=== PATIENT | male | born 1965 | race Caucasian/White ===

== ENCOUNTER 2022-11-29 17:49 | Emergency (ER) | payer BC, SELFPAY ==
[2022-11-29 17:50] VITALS: BP 130/73; PULSE 62; RESP 18; TEMP 36.6; O2SAT 96; BMI 39.4
--- NOTE | 2022-11-29 19:24 | ED.VIS.GI ---
HPI HPI - GI History of Present Illness Chief Complaint: Abd Pain Informant: patient Narrative Narrative: Patient presents with abdominal pain. The triage note said 2 days. Patient states it started today. He has had constipation for about a week. He states he did move his bowels today but it was very large. It was not black or bloody.. He states today he started to have some cramping in the lower abdomen across both sides. This was going on for about an hour or 2. He states is really a lot better now and essentially gone. He never had nausea vomiting with this. He states he felt a little flushed when the pain was bad but he never got lightheaded or presyncopal. He has no back pain at any time. He has no peripheral numbness tingling or weakness. He has not been ill recently. He has had no fevers or chills. No trouble breathing. No chest pain. No history of any prior abdominal surgery. No new medications. No blood or black in the stool. I did review patient's past surgical medical history along with medications and allergies and family history with the patient and in the record. [facility] Medical History (Updated 11/29/22 @ 21:[address] Derrick Ayers MD) Anxiety Depression DM hyperosmolarity type II HTN (hypertension) Hypothyroid Home Medications hydrochlorothiazide 25 mg tablet 25 mg PO DAILY 01/06/15 [History Last Taken Unknown] multivitamin with folic acid 400 mcg tablet (Thera) 1 tab PO DAILY 01/06/15 [History Last Taken Unknown] tamsulosin 0.4 mg capsule 0.4 mg PO DAILY 01/06/15 [History Last Taken Unknown] fluoxetine 40 mg capsule 40 mg PO DAILY 11/08/16 [History Last Taken Unknown] pioglitazone 30 mg tablet 30 mg PO DAILY DIABETES 11/08/16 [History Last Taken Unknown] amlodipine 5 mg tablet 5 mg PO DAILY 11/29/22 [History Last Taken Unknown] bupropion HCl 300 mg 24 hr tablet, extended release 300 mg PO DAILY 11/29/22 [History Last Taken Unknown] dulaglutide 0.75 mg/0.5 mL subcutaneous pen injector (Trulicity) 0.75 mg subcut QWEEK 11/29/22 [History Last Taken Unknown] glipizide 5 mg tablet mg 11/29/22 [History Last Taken Unknown] levothyroxine 112 mcg tablet 112 mcg PO DAILY 11/29/22 [History Last Taken Unknown] losartan 100 mg tablet 100 mg PO DAILY 11/29/22 [History Last Taken Unknown] metoprolol succinate 50 mg tablet,extended release 24 hr 50 mg PO DAILY 11/29/22 [History Last Taken Unknown] potassium chloride 20 mEq tablet,extended release(part/cryst) 20 meq PO DAILY 11/29/22 [History Last Taken Unknown] Allergy/AdvReac Type Severity Reaction Status Date / Time No Known Allergies Allergy Verified 11/08/16 00:21 Social History Smoking Status: Never smoker EXAM Physical Exam Narrative Exam Narrative: Patient is awake alert. He looks very comfortable in the bed. He is nontoxic. He states he is really not hurting now. HEENT is normal. There is no pallor. Mucous membranes are moist. Lungs are clear. No pain with a deep breath. Heart is regular with a rate about 65. I hear no murmur gallop rub or muffled tones. Peripheral pulses x4 are normal. Abdomen is mildly obese but not distended. Bowel sounds are normal. The exam is very normal. There is no tenderness at this time. I feel no mass. There is no bruit. There is no CVA tenderness. Extremities show no swelling. There is no mottling. Sensation and pulses are normal. Patient is awake alert and appropriate. Const Vital Signs: 11/29/22 17:50 Temperature 97.9 F Temperature Source Temporal Pulse Rate 62 Respiratory Rate 18 Blood Pressure 130/73 H Blood Pressure Mean 92 Pulse Ox 96 Oxygen Delivery Method Room Air MDM MDM MDM Narrative Medical decision making narrative: 7 view x-ray abdominal series looked at by me and independently interpreted by me shows no sign of obstruction. No sign of ileus. I do not see any calcifications near the gallbladder or kidneys. There is some increased stool. Radiology reading also shows no acute process. Blood work was done include CBC that showed no elevation of white count abnormal hematocrit or platelets. Electrolytes showed mildly decreased potassium at 3.1 but this should self correct with diet. Glucose was only minimally elevated 124. He did have elevation of AST ALT and slight elevation of bilirubin. Alkaline phosphatase was normal. Lipase was normal. I have no prior labs to compare with and these were looked for on his medical record. I explained to the patient that these liver tests will need to be rechecked. He never had right upper quadrant tenderness. He does not drink regularly. He has no tenderness or pain in the area now. He actually has no complaints at all right now. He feels totally normal. On his urine showed some nitrites but only 0-5 white cells. A culture will be sent but he was not treated with antibiotics as again he has no symptoms of UTI. I long discussion with the patient. He thinks this is likely constipation. I think this certainly could cause his symptoms of transient cramping that resolved. He did move his bowels once at home. He has already gone to the store and bought Dulcolax but has not yet taken it. I discussed that diverticulitis is certainly possible but I do not think he needs a CAT scan at this time. His symptoms are resolved, he has no tenderness, no history of diverticulitis no fever no white count. I do not think this likely is kidney stone as he never had back or flank pain. Lab Data Attestation: I reviewed the patient's lab results. Labs: Laboratory Results - last 24 hr 11/29/22 11/29/22 11/29/22 19:40 19:45 19:45 WBC 8.0 RBC 5.00 Hgb 14.4 Hct 43.7 MCV 87.4 MCH 28.8 MCHC 33.0 RDW Std Deviation 42.5 RDW Coeff of Saurabh 13.4 Plt Count 164 MPV 11.1 Immature Gran % (Auto) 0.800 Neut % (Auto) 68.9 Lymph % (Auto) 19.5 Clinch % (Auto) 6.3 Eos % (Auto) 3.9 Baso % (Auto) 0.6 Absolute Neuts (auto) 5.5 Absolute Lymphs (auto) 1.56 Nucleated RBC % 0 Sodium 141 Potassium 3.1 L Chloride 105 Carbon Dioxide 31.0 Anion Gap 5 BUN 15 Creatinine 1.01 Estim Creat Clear Calc 83.87 Est GFR (MDRD) Af Amer 97 Est GFR (MDRD) Non-Af 80 BUN/Creatinine Ratio 14.9 Glucose 124 H Calcium 9.3 Total Bilirubin 2.00 H AST 278 H ALT 263 H Alkaline Phosphatase 115 Total Protein 7.3 Albumin 3.6 Globulin 3.7 Albumin/Globulin Ratio 1.0 Lipase 168 Urine Color Janet Urine Clarity Sl. Cloudy Urine pH 8.0 Ur Specific [place] 1.010 Urine Protein 15 H Urine Glucose (UA) 100 H Urine Ketones Negative Urine Occult Blood Negative Urine Nitrite Positive H Urine Bilirubin 1 H Urine Urobilinogen 8 H Ur Leukocyte Esterase 100 H Urine RBC 0 SEEN Urine WBC 0-5 SEEN Ur Squamous Epith Cells 0-5 SEEN Urine Bacteria 2+ Urine Mucus 0 SEEN Radiography Diagnostic Testing: Clinical Impression(s) from Imaging Studies Acute Abdomen Series 11/29/22 20:10 IMPRESSION: Negative chest and abdominal series. Electronically Signed: Oscar Durand MD at 20:30 EST , Discharge Plan Triage Chief Complaint: Abd Pain ED Provider: Derrick Ayers Dx/Rx/DC Orders Clinical Impression: Abdominal pain, Constipation Instructions: ED Constipation (Adult), ED Abdominal Pain Unkn Cause Male... Prescriptions: No Action tamsulosin 0.4 MG capsule 0.4 mg PO DAILY hydrochlorothiazide 25 MG tablet 25 mg PO DAILY multivitamin with folic acid [Thera] 1 TABLET tablet 1 tab PO DAILY fluoxetine 40 MG capsule 40 mg PO DAILY Label Comments: pioglitazone 30 MG tablet 30 mg PO DAILY Label Comments: metoprolol succinate 50 mg tablet extended release 24 hr 50 mg PO DAILY Label Comments: TAKE 1 TABLET BY MOUTH ONCE DAILY amlodipine 5 mg tablet 5 mg PO DAILY Label Comments: Take 1.5 tablets by mouth once daily. potassium chloride 20 mEq tablet,ER particles/crystals 20 meq PO DAILY Label Comments: Take 1 tablet by mouth twice daily. losartan 100 mg tablet 100 mg PO DAILY glipizide 5 mg tablet Label Comments: Take 1 tablet by mouth twice daily before meals. levothyroxine 112 mcg tablet 112 mcg PO DAILY Label Comments: Take 1 tablet by mouth once daily. bupropion HCl 300 mg tablet extended release 24 hr 300 mg PO DAILY Label Comments: TAKE 1 TABLET BY MOUTH ONCE DAILY Trulicity 0.75 mg/0.5 mL pen injector 0.75 mg SUBCUT QWEEK Label Comments: Inject 0.75 mg subcutaneously one time a week. Inject dose once per week. Discard Pen After Primary Care Provider: Marcel Costa Referrals: Marcel Costa MD [Primary Care Provider] - 1-2 Days if not improving Activity Restrictions/Additional Instructions: You may use the Dulcolax that she already bought. May also try a fleets enema. Disposition Disposition: Home, Self Care
[2022-11-29] MEDS: 0.9% Normal Saline 1,000 ML 1000 ML IV (19:55)
[2022-11-29 20:00] LABS: Absolute Lymphocyte Count 1.56 X10^3/uL (0.83-4.51); Absolute Neutrophil Count 5.5 X10^3/uL (2.0-7.7); Basophil# 0.05 X10^3/uL; Basophil% 0.6 % (0-1); Eosinophil# 0.31 X10^3/uL; Eosinophils% 3.9 % (0-5); Hematocrit 43.7 % (40-54); Hemoglobin 14.4 g/dL (13.0-16.5); Lymphocyte # 1.56 X10^3/ul (0.83-4.51); Lymphocyte % 19.5 % (19-41); Mean Corpuscular Hgb 28.8 pg (27.0-32.0); Mean Corpuscular Volume 87.4 fL (80-94); Mean Platelet Vol. 11.1 fl (6.2-12.0); Monocyte% 6.3 % (0-10); NRBC Flagged by Analyzer 0 % (0-5); Neutrophil # 5.52 X10^3/uL (2.7-7.7); Neutrophil % 68.9 % (47-70); Platelet Count 164 K/mm3 (150-450); RBC Distribution Width CV 13.4 % (11.6-14.6); RBC Distribution Width SD 42.5 fl (35.1-43.9)
[2022-11-29 20:01] LABS: Mucous, Urine 0 SEEN /hpf (<or=2+); Red Blood Cells-Urine 0 SEEN /hpf (0-5)
[2022-11-29 20:04] LABS: Color, Urine Amber (Yellow); Glucose, Dipstick 100 mg/dl (Normal); Ketone-Dipstick Negative (Negative); Leukocyte Esterase-Dipstick 100 /ul (Negative); Nitrite-Dipstick Positive (Negative); Occult Blood-Urine Negative /ul (Negative); Protein-Dipstick 15 mg/dl (Negative); Urine Clarity Sl. Cloudy (Clear); Urine Urobilinogen 8 mg/dl (Normal)
--- NOTE | 2022-11-29 20:10 | RAD_ITS ---
EXAM: XR ABDOMEN, 2 VIEWS AND XR CHEST, 1 VIEW CLINICAL INDICATION: Pain TECHNIQUE: Frontal view of the chest, frontal view of the abdomen/pelvis and upright or decubitus view of the abdomen. This report was created using [employer] report generation technology. COMPARISON: None. FINDINGS: CHEST: LUNGS AND PLEURAL SPACES: Unremarkable. No consolidation or edema. No pneumothorax. No effusion. HEART: Unremarkable. Cardiac silhouette not enlarged. MEDIASTINUM: Central airways and mediastinal contour are unremarkable. ABDOMEN: INTRAPERITONEAL SPACE: No free air. GASTROINTESTINAL TRACT: Unremarkable. Non-obstructive. No bowel or stomach distention. ORGANS: Unremarkable as visualized. No organomegaly. No abnormal calcifications. TUBES, LINES AND DEVICES: None. BONES/JOINTS: No acute findings. SOFT TISSUES: No acute findings. RAD/Acute Abdomen Inc Chest IMPRESSION: Negative chest and abdominal series. Electronically Signed: Oscar Durand MD at 20:30 EST ,
[2022-11-29 20:19] LABS: AST(SGOT) 278 U/L (15-37); Alanine Aminotransfer ALT/SGPT 263 U/L (16-61); Albumin, Serum 3.6 g/dL (3.2-5.0); Alkaline Phosphatase 115 U/L (45-117); Anion Gap 5 (5-15); BUN 15 mg/dL (7-18); BUN/Creat Ratio 14.9 RATIO (10-20); Calcium,Total 9.3 mg/dL (8.5-10.1); Chloride 105 mmol/L (98-107); Creatinine, Serum 1.01 mg/dL (0.70-1.30); EST Glomerular Filtration Rate 80 mL/min (>60); Est Glom Filt Rate - Afr Amer 97 mL/min (>60); Estimated Creatinine Clearance 83.87 ml/min; Globulin 3.7 g/dL (2.2-4.2); Glucose 124 mg/dL (74-106); Lipase 168 U/L (73-393); Potassium 3.1 mmol/L (3.5-5.1); Protein, Total 7.3 g/dL (6.4-8.2); Sodium Level 141 mmol/L (136-145)
[2022-11-29 20:46] LABS: Urine Bilirubin Dipstick 1 mg/dL (Negative)
[2022-11-29 20:52] LABS: Bacteria 2+ /hpf (None Seen); Squamous Epithelial Cells - UA 0-5 SEEN /hpf (0-5); White Blood Cells 0-5 SEEN /hpf (0-5)
== END 2022-11-29 21:32 | disposition home or self-care (01) ==
PROVIDERS: Emergency Provider Emergency Medicine; PCP Family Medicine; Visit Provider Emergency Medicine
DX: K59.00 Constipation, unspecified (principal); E11.9 Type 2 diabetes mellitus without complications; I10 Essential (primary) hypertension; R10.9 Unspecified abdominal pain
CPT/HCPCS: 74022; 80053; 81001; 83690; 85025; 87086; 96360; 99282; J7030; A4216